=== PATIENT | female | born 1995 | race Caucasian/White ===

== ENCOUNTER 2017-01-17 07:35 | Emergency (ER) | payer OTHER ==
--- NOTE | 2017-01-17 10:15 | DIAGNOSTIC IMAGING REPORT ---
PROCEDURE: US ABDOMEN ULTRASOUND-LIMITED INDICATION: RUQ PAIN TECHNIQUE: Linton scale and color Doppler sonographic images of the abdomen were obtained without comparison. COMPARISON: None. FINDINGS: The liver is normal in size, contour, and echotexture. There is an 11 mm hemangioma in the right lower lobe. The gallbladder is normal without stones or sludge. The wall is normal thickness measuring 2.2 mm No pericholecystic fluid or Le sign. The extrahepatic common duct is normal measuring 2.5 mm The visualized pancreas is normal without ductal dilatation or peripancreatic fluid collection. The abdominal aorta is normal in its course and caliber. The retrohepatic inferior vena cava is patent. There is appropriate hepatopetal flow in the portal vein. The right kidney measures 10.2 cm in length. There is no perihepatic or perisplenic ascites. IMPRESSION: 1. Normal abdominal ultrasound.
--- NOTE | 2017-01-17 10:20 | ED ORDER SUMMARY ---
..... Patient: DULCE NIETO OrderSheet [facility] VisitID: [id number] [place] [address] 21y, F Registration Date/Time: 01/17/2017 ORDER SHEET Weight: 73.4 kg (stated) Allergies: No Known Drug Allergy GENERAL ORDERS: CBC w Diff Urgent (07:52 01/17/2017 Alex FOSTER) (Ack 7:57 LNations ER Tech1) (8:00 JBoardley R.N.) CMP Urgent (07:01/17/2017 Alex FOSTER) (Ack 7:57 LNations ER Tech1) (8:00 JBoardley R.N.) UA-Culture if indicated Urgent (07:01/17/2017 Alex FOSTER) (Ack 7:57 LNations ER Tech1) (8:25 JBoardley R.N.) Amylase Urgent (07:01/17/2017 Alex FOSTER) (Ack 7:57 LNations ER Tech1) (8:00 JBoardley R.N.) Lipase Urgent (07:01/17/2017 Alex FOSTER) (Ack 7:57 LNations ER Tech1) (8:00 JBoardley R.N.) Urine Urgent (07:52 01/17/2017 Alex FOSTER) (Ack 7:57 LNations ER Tech1) (8:25 JBoardley R.N.) US Abdomen Limited (Yes) Urgent (09:02 01/17/2017 Alex FOSTER) (Ack 9:23 LNations ER Tech1) (9:54 JBoardley R.N.) MEDICATION ORDERS: IV FLUIDS: IV NS : initial bolus 500 mL (1000 mL/hr), then 125 mL/hr for 4h (NOW); Urgent (07:51 01/17/2017 Alex FOSTER) (8:02 JBoardley R.N.) Zofran IV 4 mg (NOW) (07:52 01/17/2017 Alex FOSTER) (8:02 JBoardley R.N.) Zofran IV 4 mg (NOW) (09:25 01/17/2017 JBoardley R.N. per protocol) (9:25 Rosanna Duke) Demerol IV 25 mg (HIGH ALERT MEDICATION, NOW) (10:16 01/17/2017 Desmond Valdovinos) (10:26 Reagan Duke) ORDER SHEET NOTES: [Electronically signed by Joel Carreon Dr. (16:33 01/17/2017)] [Electronically signed by Domenico Bustamante R.N. (19:23 01/25/2017)] [Electronically locked/signed by Domenico Bustamante R.N. (19:23 01/25/2017)]
--- NOTE | 2017-01-17 10:20 | ED CLINICAL REPORT ---
Clinical Report - Physicians/Mid Levels [facility] [address] [place] [address] 01/17/2017 7:38 Patient: DULCE NIETO Time Seen: 07:51. Arrived- By private vehicle. Historian- patient. HISTORY OF PRESENT ILLNESS Chief Complaint: VOMITING. This started today at about 3 AM and is still present. It was abrupt in onset and has been waxing/waning. The patient has had nausea, vomiting. The vomiting has occurred several times and has been blood-tinged and moderate abdominal pain. The pain is described as located in the RUQ. She has had contact with a sick individual. (possibly - her boyfriend is currently hospitalized at another facility). The illness is described as moderate. REVIEW OF SYSTEMS No chills, fever, sweats, calf pain or chest pain. No cough, difficulty breathing, pedal edema, palpitations or black stools. No bloody stools, constipation, diarrhea, nausea or vomiting. No urinary problems. All systems otherwise negative, except as recorded above. PAST HISTORY Problems: Headache. Depression. Asthma. Panic Attack. Migraine Headache. Chronic Headache. Additional Surgeries: no known surgeries. Medications: TraZODone HCl Oral. Zoloft Oral. Allergies: No Known Drug Allergy. SOCIAL HISTORY Never smoker. No alcohol use or drug use. ADDITIONAL NOTES The nursing notes have been reviewed. PHYSICAL EXAM Vital Signs: 01/17/2017 07:41 BP: 98/61. HR: 102. RR: 18. O2 saturation: 100%. Temp: 99.2 F. Pain level now: 6/10. Have been reviewed. Appearance: Alert. Eyes: Pupils equal, round and reactive to light. ENT: Pharynx normal. Neck: Normal inspection. Neck supple. CVS: Normal heart rate and rhythm. Heart sounds normal. Respiratory: No respiratory distress. Breath sounds normal. Abdomen: Soft. Moderate tenderness in the right upper quadrant. LABS, X-RAYS, AND EKG Abdominal Sonogram: (Nl GB, no stones or evidence of cholecystitis.). Study included the gallbladder. Prior studies were not available for comparison. The study was interpreted by the radiologist and discussed with the radiologist. Interpretation time: 10:04. Laboratory Tests: UA-Culture if indicated: (YOUSIF: 01/17/2017 08:20) ( [facility] 01/17/2017 08:43) Final results Test Result Flag Units (Reference) URINE COLOR YELLOW URINE APPEARANCE SL CLOUDY URINE GLUCOSE NEGATIVE (NEGATIVE) URINE BILIRUBIN NEGATIVE (NEGATIVE) URINE KETONE NEGATIVE (NEGATIVE) URINE SPECIFIC GRAVITY 1.020 (1.010-1.030) URINE PH 6.5 (5.0-8.0) URINE PROTEIN NEGATIVE (NEGATIVE) URINE UROBILINOGEN 0.2 EU/dL (0.2-1.0) URINE NITRITE NEGATIVE (NEGATIVE) URINE BLOOD NEGATIVE (NEGATIVE) URINE LEUK ESTERASE NEGATIVE (NEGATIVE) URINE RBC NONE SEEN rbc/hpf (0-1) URINE WBC 1-3 wbc/hpf (0-1) URINE EPITHELIAL CELLS 3-5 EPI/hpf (0-5) URINE BACTERIA FEW (1+) (NONE SEEN) URINE COMMENT CULT NOT INDICATED URINE CULTURES ARE SET-UP BASED ON THE FOLLOWING CRITERIA:POSITIVE NITRITEPOSITIVE LEUKOCYTE ESTERASEGREATER THAN 10 WHITE BLOOD CELLSMODERATE (2+) OR GREATER BACTERIA Urine: (YOUSIF: 01/17/2017 08:20) ( [facility] 01/17/2017 08:38) Final results Test Result Flag Units (Reference) URINE NEGATIVE CBC w Diff: (YOUSIF: 01/17/2017 07:59) ( [facility] 01/17/2017 08:17) Final results Test Result Flag Units (Reference) WHITE BLOOD COUNT 7.5 K/uL (4.5-11.5) RED BLOOD COUNT 4.56 M/uL (4.00-5.20) HEMOGLOBIN 12.9 gm/dL (12.0-16.0) HEMATOCRIT 38.5 % (36.0-46.0) MEAN CELL VOLUME 84 fL (80-100) MEAN CORPUSCULAR HGB 28 pg (26-34) MEAN CORPUSCULAR HGB CONC 33 g/dL (31-37) RED CELL DISTRIBUTION WIDTH 14.2 % (11.6-14.8) PLATELET COUNT 190 K/uL (150-400) NEUTROPHIL % 85.1 H % (50-75) LYMPH % 2.8 L % (25-40) MONO % 4.7 % (3-14) EOSINOPHIL % 7.4 H % (0-4) BASOPHIL % 0 % (0-2) CMP: (YOUSIF: 01/17/2017 07:59) ( MsgRcvd 01/17/2017 08:47) Final results Test Result Flag Units (Reference) GLUCOSE 102 mg/dL (70-110) BUN 12 mg/dL (7-18) CREATININE 0.7 mg/dL (0.6-1.3) Estimated GFR >60 mL/min Estimated GFR- >60 mL/min Note: Persistent reduction over 3 months in eGFR<60 mL/min/1.73 m2 defines CKD. Patients with eGFR values>=60 mL/min/1.73 m2 may also have CKD if evidence ofpersistent proteinuria. Additional information may be foundat www.kidney.org. SODIUM 142 mmol/L (136-145) POTASSIUM 3.8 mmol/L (3.5-5.1) CHLORIDE 106 mmol/L (98-107) CARBON DIOXIDE 25 mmol/L (21-32) CALCIUM 8.4 L mg/dL (8.5-10.1) TOTAL PROTEIN 7.0 g/dL (6.4-8.2) ALBUMIN 3.6 g/dL (3.3-5.0) BILIRUBIN, TOTAL 0.6 mg/dL (0.0-1.0) ALKALINE PHOSPHATASE 52 U/L (46-116) AST (SGOT) 24 U/L (15-37) ALT (SGPT) 33 U/L (12-78) LIPASE 165 U/L (73-393) AMYLASE 80 U/L (25-115) . PROGRESS AND PROCEDURES Course of Care: 09:25 01/17/17. the case was discussed at change of shift with Dr. Carreon. Reviewed the patient's history and examination findings and the results of her labs. He will follow up on the results of her ultrasound and will arrange appropriate disposition for her. - SUKHI 10:16 01/17/17. Discussed results w/ pt. Confirmed H&P documented by Dr. Bond. Disposition: Discharged home in good and improved condition. Condition: good. CLINICAL IMPRESSION Biliary colic. No gallstones or cholecystitis. INSTRUCTIONS Avoid fatty and fried/greasy foods. Your Current Medications: CONTINUE TAKING THE FOLLOWING MEDICATIONS: TraZODone HCl Oral. Zoloft Oral. Prescription Medications: Zofran ODT 4 mg: take 1 orally every 6 hours as needed for nausea. Dispense ten (10). One refill. Substitution is permissible. Demerol 50 mg: take 1 - 2 tablets orally every 6 hours as needed for pain. Dispense fifteen (15). No refills. Substitution is permissible. Follow-up: Screening today revealed the patient's blood pressure to be in the normal range. Follow-up with: Kenton Talavera MD, General Surgeon, , [facility], [address] [place] [address] Follow up in about four days. Call for an appointment. (Electronically signed by Joel Carreon Dr. 01/17/2017 16:33)
--- NOTE | 2017-01-17 10:20 | ED NURSING NOTES ---
Clinical Report - Nurses [facility] [address] [place] [address] 01/17/2017 7:38 [id number] Triage time 07:42. Acuity: LEVEL 3. Chief Complaint: ABDOMINAL PAIN and NAUSEA. 07:42 01/17/17. 07:42 01/17/17. Alert. No acute distress. --07:44 Domenico Bustamante R.N. 07:41 01/17/17. BP: 98/61. HR: 102. RR: 18. O2 saturation: 100% on room air. Temp: 99.2 F (oral). Pain level now: 01/14. --07:44 Domenico Bustamante R.N. Weight: 73.4 kg stated. Height/Length: 68 inches Per Patient. BMI: 24.6. --07:41 Domenico Bustamante R.N. Medications Zoloft Oral. --07:43 Domenico Bustamante R.N. TraZODone HCl Oral. --07:43 Domenico Bustamante R.N. Allergies No Known Drug Allergy. --07:44 Domenico Bustamante R.N. History Arrived by EMS. Historian: EMS and patient. Unaccompanied. Primary physician (AMBERLY). 07:42 01/17/17. ( 0300). She has had nausea. Treatment ARTIST'S MODEL: None. PAST MEDICAL HX: Immunizations: up-to-date. Last normal menstrual period- 1 month ago. Denies current . SOCIAL HX: Never smoker. No alcohol use or drug use. No recent travel. No infectious disease exposure. No known contact with a sick individual. ABUSE ASSESSMENT: No report of abuse. FALL RISK ASSESSMENT: Fall risk assessment completed. No fall risk identified. NUTRITIONAL RISK ASSESSMENT: The nutritional risk assessment revealed no deficiencies. FUNCTIONAL ASSESSMENT: Functional assessment: no impairments noted. LEARNING NEEDS ASSESSMENT: The learning needs assessment revealed no barriers. SKIN INTEGRITY ASSESSMENT: Skin integrity risk assessment completed. No skin integrity risk identified. --07:44 Domenico Bustamante R.N. Treatment ARTIST'S MODEL: See EMS report. BP: 118 / 78. HR: 100 regular. RR: 16. Temp: 98.3 oral. O2 saturation: 96 % room air. ( Vomiting since 0300, with possible blood in vomit, pt is unsure). --08:08 Domenico Bustamante R.N. PROBLEMS: Immunizations. Headache. Depression. Asthma. Panic Attack. Migraine Headache. Chronic Headache. --07:44 Domenico Bustamante R.N. ADDITIONAL SURGERIES: no known surgeries. Assessment 07:42 01/17/17. --07:44 Domenico Bustamante R.N. Interventions 07:42 01/17/17. 07:42 01/17/17. ID and allergy band on patient. To treatment room. --07:44 Domenico Bustamante R.N. PHYSICAL ASSESSMENT 07:45 01/17/17. To room via stretcher. GENERAL / NEURO / PSYCH: Alert. Oriented X 4. Appears in no acute distress. RESPIRATORY: Respirations not labored. CVS: Capillary refill less than 2 seconds. GI / : Abdominal tenderness diffusely. SKIN: Skin is warm and dry. --07:45 Domenico Bustamante R.N. NURSING PROGRESS NOTES 07:45 01/17/17. The plan of care for this patient has been created. Patient gowned. Head of bed elevated. Reassurance given. Two patient identifiers checked. Call light placed in reach. Side rails up x 2. Bed placed in lowest position. Brakes of bed on. --07:45 Domenico Bustamante R.N. 07:45 01/17/17. Patient ready for evaluation- chart flagged and notification provided. --07:45 Domenico Bustamante R.N. <<WILIKEN ENTRY-- 07:52 01/17/2017 Site #1 started via IV in the left with an 20g angiocath, with aseptic technique and good blood return; one attempt. Blood drawn: rainbow set. Labeled in the presence of the patient and sent to the lab. Saline lock flushed with 10 mL saline. --08:02 Domenico Bustamante R.N. --END STRIKE>> Correction. --08:02 Domenico Bustamante R.N. 07:52 01/17/2017 Site #1 started via IV in the left antecubital space with an 20g angiocath, with aseptic technique and good blood return; one attempt. Blood drawn: rainbow set. Labeled in the presence of the patient and sent to the lab. Saline lock flushed with 10 mL saline. --08:02 Domenico Bustamante R.N. 08:02 01/17/2017 Started bag #1 1000 mL IV Fluids IV NS (Saline); at 1000 mL/hr over 1 hour(s) via site #1. Allergies verified and confirmed 5 rights. IV patency established. IV site checked: no pain, redness, or swelling. IV flushed thoroughly pre- and post-medication administration. Completed per protocol. --08:02 Domenico Bustamante R.N. 08:02 01/17/2017 Zofran (Ondansetron HCl) IVP 4 mg given over 2 minute(s) via site #1. Allergies verified and confirmed 5 rights. IV patency established. IV site checked: no pain, redness, or swelling. IV flushed thoroughly pre- and post-medication administration. IVP given by RN. --08:02 Domenico Bustamante R.N. 08:03 01/17/17. ( Pt is unable to void at this time). --08:03 Domenico Bustamante R.N. 08:25 01/17/17. BP: 98/55. HR: 94. RR: 18. O2 saturation: 100% on room air. Temp: 99 F (oral). Pain level now: 10. --08:26 Domenico Bustamante R.N. 08:26 01/17/17. --08:26 Domenico Bustamante R.N. 08:27 01/17/17. GI / : The patient reports abdominal pain that is described as sharp (stabbing pain, mid abd that radiates right to left). Denies nausea. --08:27 Domenico Bustamante R.N. 09:25 01/17/2017 Zofran (Ondansetron HCl) IVP 4 mg given over 2 minute(s) via site #1. Allergies verified and confirmed 5 rights. IV patency established. IV site checked: no pain, redness, or swelling. IV flushed thoroughly pre- and post-medication administration. IVP given by RN. --09:25 Domenico Bustamante R.N. 09:01/17/17. Patient informed about reason for wait and about plan of care. Patient waiting for diagnostic study to be done (). --09:31 Domenico Bustamante R.N. 10:01/17/2017 Demerol (Meperidine HCl) IVP 25 mg given over 30 second(s) via site #1. Allergies verified and confirmed 5 rights. IV patency established. IV site checked: no pain, redness, or swelling. IV flushed thoroughly pre- and post-medication administration. IVP given by RN. --10:26 Teresa Rasmussen R.N. Reassurance given. The patient is calm. GI / : The patient reports abdominal pain. Denies nausea, diarrhea or vomiting. Call light placed in reach. --10:30 Teresa Rasmussen R.N. 10:26 01/17/17. BP: 100/55. HR: 97. RR: 15. O2 saturation: 100%. Temp: 98.3 F (oral). Pain level now: 12/14. --10:30 Teresa Rasmussen R.N. DISPOSITION / DISCHARGE Condition at departure: improved and stable. The goals identified in the patient's plan of care were met. No learning barriers present. Discharge instructions provided and reviewed with the patient. Reviewed warnings. Reviewed medication(s). Reviewed referral to a fire truck driver. Reviewed diet. Activity restrictions (rest) reviewed. Patient verbalized understanding. Written instructions provided in Vietnamese. No treatment instructions. The patient was discharged by the physician. She was discharged home and accompanied by spouse. She left the Emergency Department ambulatory and via private vehicle. Driving (taxi). FALL RISK ASSESSMENT: Fall risk assessment completed. No fall risk identified. --10:36 Teresa Rasmussen R.N. 10:30 01/17/17. BP: 100/55 (regular adult cuff) taken on the left arm, via an automated monitor, while lying. HR: 97. RR: 16. O2 saturation: 100% on room air. Temp: 98.3 F. Pain level now: 11/14. --10:36 Teresa Rasmussen R.N. 10:36 01/17/2017 Site #1 removed upon discharge. Manual pressure, pressure dressing, bandaid and bandage applied. --10:36 Teresa Rasmussen R.N. Locked/Released at 01/25/2017 19:23 by Domenico Bustamante R.N.
--- NOTE | 2017-01-17 10:20 | ED NURSING NOTES ---
Clinical Report - Nurses [facility] [address] [place] [address] 01/17/2017 7:38 [id number] Triage time 07:42. Acuity: LEVEL 3. Chief Complaint: ABDOMINAL PAIN and NAUSEA. 07:42 01/17/17. 07:42 01/17/17. Alert. No acute distress. --07:44 Domenico Bustamante R.N. 07:41 01/17/17. BP: 98/61. HR: 102. RR: 18. O2 saturation: 100% on room air. Temp: 99.2 F (oral). Pain level now: 01/14. --07:44 Domenico Bustamante R.N. Weight: 73.4 kg stated. Height/Length: 68 inches Per Patient. BMI: 24.6. --07:41 Domenico Bustamante R.N. Medications Zoloft Oral. --07:43 Domenico Bustamante R.N. TraZODone HCl Oral. --07:43 Domenico Bustamante R.N. Allergies No Known Drug Allergy. --07:44 Domenico Bustamante R.N. History Arrived by EMS. Historian: EMS and patient. Unaccompanied. Primary physician (AMBERLY). 07:42 01/17/17. ( 0300). She has had nausea. Treatment RICE CLEANING MACHINE TENDER: None. PAST MEDICAL HX: Immunizations: up-to-date. Last normal menstrual period- 1 month ago. Denies current . SOCIAL HX: Never smoker. No alcohol use or drug use. No recent travel. No infectious disease exposure. No known contact with a sick individual. ABUSE ASSESSMENT: No report of abuse. FALL RISK ASSESSMENT: Fall risk assessment completed. No fall risk identified. NUTRITIONAL RISK ASSESSMENT: The nutritional risk assessment revealed no deficiencies. FUNCTIONAL ASSESSMENT: Functional assessment: no impairments noted. LEARNING NEEDS ASSESSMENT: The learning needs assessment revealed no barriers. SKIN INTEGRITY ASSESSMENT: Skin integrity risk assessment completed. No skin integrity risk identified. --07:44 Domenico Bustamante R.N. Treatment RICE CLEANING MACHINE TENDER: See EMS report. BP: 118 / 78. HR: 100 regular. RR: 16. Temp: 98.3 oral. O2 saturation: 96 % room air. ( Vomiting since 0300, with possible blood in vomit, pt is unsure). --08:08 Domenico Bustamante R.N. PROBLEMS: Immunizations. Headache. Depression. Asthma. Panic Attack. Migraine Headache. Chronic Headache. --07:44 Domenico Bustamante R.N. ADDITIONAL SURGERIES: no known surgeries. Assessment 07:42 01/17/17. --07:44 Domenico Bustamante R.N. Interventions 07:42 01/17/17. 07:42 01/17/17. ID and allergy band on patient. To treatment room. --07:44 Domenico Bustamante R.N. PHYSICAL ASSESSMENT 07:45 01/17/17. To room via stretcher. GENERAL / NEURO / PSYCH: Alert. Oriented X 4. Appears in no acute distress. RESPIRATORY: Respirations not labored. CVS: Capillary refill less than 2 seconds. GI / : Abdominal tenderness diffusely. SKIN: Skin is warm and dry. --07:45 Domenico Bustamante R.N. NURSING PROGRESS NOTES 07:45 01/17/17. The plan of care for this patient has been created. Patient gowned. Head of bed elevated. Reassurance given. Two patient identifiers checked. Call light placed in reach. Side rails up x 2. Bed placed in lowest position. Brakes of bed on. --07:45 Domenico Bustamante R.N. 07:45 01/17/17. Patient ready for evaluation- chart flagged and notification provided. --07:45 Domenico Bustamante R.N. <<WILIKEN ENTRY-- 07:52 01/17/2017 Site #1 started via IV in the left with an 20g angiocath, with aseptic technique and good blood return; one attempt. Blood drawn: rainbow set. Labeled in the presence of the patient and sent to the lab. Saline lock flushed with 10 mL saline. --08:02 Domenico Bustamante R.N. --END STRIKE>> Correction. --08:02 Domenico Bustamante R.N. 07:52 01/17/2017 Site #1 started via IV in the left antecubital space with an 20g angiocath, with aseptic technique and good blood return; one attempt. Blood drawn: rainbow set. Labeled in the presence of the patient and sent to the lab. Saline lock flushed with 10 mL saline. --08:02 Domenico Bustamante R.N. 08:02 01/17/2017 Started bag #1 1000 mL IV Fluids IV NS (Saline); at 1000 mL/hr over 1 hour(s) via site #1. Allergies verified and confirmed 5 rights. IV patency established. IV site checked: no pain, redness, or swelling. IV flushed thoroughly pre- and post-medication administration. Completed per protocol. --08:02 Domenico Bustamante R.N. 08:02 01/17/2017 Zofran (Ondansetron HCl) IVP 4 mg given over 2 minute(s) via site #1. Allergies verified and confirmed 5 rights. IV patency established. IV site checked: no pain, redness, or swelling. IV flushed thoroughly pre- and post-medication administration. IVP given by RN. --08:02 Domenico Bustamante R.N. 08:03 01/17/17. ( Pt is unable to void at this time). --08:03 Domenico Bustamante R.N. 08:25 01/17/17. BP: 98/55. HR: 94. RR: 18. O2 saturation: 100% on room air. Temp: 99 F (oral). Pain level now: 10. --08:26 Domenico Bustamante R.N. 08:26 01/17/17. --08:26 Domenico Bustamante R.N. 08:27 01/17/17. GI / : The patient reports abdominal pain that is described as sharp (stabbing pain, mid abd that radiates right to left). Denies nausea. --08:27 Domenico Bustamante R.N. 09:25 01/17/2017 Zofran (Ondansetron HCl) IVP 4 mg given over 2 minute(s) via site #1. Allergies verified and confirmed 5 rights. IV patency established. IV site checked: no pain, redness, or swelling. IV flushed thoroughly pre- and post-medication administration. IVP given by RN. --09:25 Domenico Bustamante R.N. 09:01/17/17. Patient informed about reason for wait and about plan of care. Patient waiting for diagnostic study to be done (). --09:31 Domenico Bustamante R.N. 10:01/17/2017 Demerol (Meperidine HCl) IVP 25 mg given over 30 second(s) via site #1. Allergies verified and confirmed 5 rights. IV patency established. IV site checked: no pain, redness, or swelling. IV flushed thoroughly pre- and post-medication administration. IVP given by RN. --10:26 Teresa Rasmussen R.N. Reassurance given. The patient is calm. GI / : The patient reports abdominal pain. Denies nausea, diarrhea or vomiting. Call light placed in reach. --10:30 Teresa Rasmussen R.N. 10:26 01/17/17. BP: 100/55. HR: 97. RR: 15. O2 saturation: 100%. Temp: 98.3 F (oral). Pain level now: 12/14. --10:30 Teresa Rasmussen R.N. DISPOSITION / DISCHARGE Condition at departure: improved and stable. The goals identified in the patient's plan of care were met. No learning barriers present. Discharge instructions provided and reviewed with the patient. Reviewed warnings. Reviewed medication(s). Reviewed referral to a waistline joiner lockstitch. Reviewed diet. Activity restrictions (rest) reviewed. Patient verbalized understanding. Written instructions provided in Serbian. No treatment instructions. The patient was discharged by the physician. She was discharged home and accompanied by spouse. She left the Emergency Department ambulatory and via private vehicle. Driving (taxi). FALL RISK ASSESSMENT: Fall risk assessment completed. No fall risk identified. --10:36 Teresa Rasmussen R.N. 10:30 01/17/17. BP: 100/55 (regular adult cuff) taken on the left arm, via an automated monitor, while lying. HR: 97. RR: 16. O2 saturation: 100% on room air. Temp: 98.3 F. Pain level now: 11/14. --10:36 Teresa Rasmussen R.N. 10:36 01/17/2017 Site #1 removed upon discharge. Manual pressure, pressure dressing, bandaid and bandage applied. --10:36 Teresa Rasmussen R.N. Locked/Released at 01/25/2017 19:23 by Domenico Bustamante R.N.
--- NOTE | 2017-01-17 10:20 | ED ORDER SUMMARY ---
..... Patient: DULCE NIETO OrderSheet [facility] VisitID: [id number] [place] [address] 21y, F Registration Date/Time: 01/17/2017 ORDER SHEET Weight: 73.4 kg (stated) Allergies: No Known Drug Allergy GENERAL ORDERS: CBC w Diff Urgent (07:52 01/17/2017 Alex FOSTER) (Ack 7:57 LNations ER Tech1) (8:00 JBoardley R.N.) CMP Urgent (07:01/17/2017 Alex FOSTER) (Ack 7:57 LNations ER Tech1) (8:00 JBoardley R.N.) UA-Culture if indicated Urgent (07:01/17/2017 Alex FOSTER) (Ack 7:57 LNations ER Tech1) (8:25 JBoardley R.N.) Amylase Urgent (07:01/17/2017 Alex FOSTER) (Ack 7:57 LNations ER Tech1) (8:00 JBoardley R.N.) Lipase Urgent (07:01/17/2017 Alex FOSTER) (Ack 7:57 LNations ER Tech1) (8:00 JBoardley R.N.) Urine Urgent (07:52 01/17/2017 Alex FOSTER) (Ack 7:57 LNations ER Tech1) (8:25 JBoardley R.N.) US Abdomen Limited (Yes) Urgent (09:02 01/17/2017 Alex FOSTER) (Ack 9:23 LNations ER Tech1) (9:54 JBoardley R.N.) MEDICATION ORDERS: IV FLUIDS: IV NS : initial bolus 500 mL (1000 mL/hr), then 125 mL/hr for 4h (NOW); Urgent (07:51 01/17/2017 Aelx FOSTER) (8:02 JBoardley R.N.) Zofran IV 4 mg (NOW) (07:52 01/17/2017 Alex FOSTER) (8:02 JBoardley R.N.) Zofran IV 4 mg (NOW) (09:25 01/17/2017 JBoardley R.N. per protocol) (9:25 Rosanna Duke) Demerol IV 25 mg (HIGH ALERT MEDICATION, NOW) (10:16 01/17/2017 Desmond Valdovinos) (10:26 Reagan Duke) ORDER SHEET NOTES: [Electronically signed by Joel Carreon Dr. (16:33 01/17/2017)] [Electronically signed by Domenico Bustamante R.N. (19:23 01/25/2017)] [Electronically locked/signed by Domenico Bustamante R.N. (19:23 01/25/2017)]
--- NOTE | 2017-01-17 10:20 | ED CLINICAL REPORT ---
Clinical Report - Physicians/Mid Levels [facility] [address] [place] [address] 01/17/2017 7:38 Patient: DULCE NIETO Time Seen: 07:51. Arrived- By private vehicle. Historian- patient. HISTORY OF PRESENT ILLNESS Chief Complaint: VOMITING. This started today at about 3 AM and is still present. It was abrupt in onset and has been waxing/waning. The patient has had nausea, vomiting. The vomiting has occurred several times and has been blood-tinged and moderate abdominal pain. The pain is described as located in the RUQ. She has had contact with a sick individual. (possibly - her boyfriend is currently hospitalized at another facility). The illness is described as moderate. REVIEW OF SYSTEMS No chills, fever, sweats, calf pain or chest pain. No cough, difficulty breathing, pedal edema, palpitations or black stools. No bloody stools, constipation, diarrhea, nausea or vomiting. No urinary problems. All systems otherwise negative, except as recorded above. PAST HISTORY Problems: Headache. Depression. Asthma. Panic Attack. Migraine Headache. Chronic Headache. Additional Surgeries: no known surgeries. Medications: TraZODone HCl Oral. Zoloft Oral. Allergies: No Known Drug Allergy. SOCIAL HISTORY Never smoker. No alcohol use or drug use. ADDITIONAL NOTES The nursing notes have been reviewed. PHYSICAL EXAM Vital Signs: 01/17/2017 07:41 BP: 98/61. HR: 102. RR: 18. O2 saturation: 100%. Temp: 99.2 F. Pain level now: 6/10. Have been reviewed. Appearance: Alert. Eyes: Pupils equal, round and reactive to light. ENT: Pharynx normal. Neck: Normal inspection. Neck supple. CVS: Normal heart rate and rhythm. Heart sounds normal. Respiratory: No respiratory distress. Breath sounds normal. Abdomen: Soft. Moderate tenderness in the right upper quadrant. LABS, X-RAYS, AND EKG Abdominal Sonogram: (Nl GB, no stones or evidence of cholecystitis.). Study included the gallbladder. Prior studies were not available for comparison. The study was interpreted by the radiologist and discussed with the radiologist. Interpretation time: 10:04. Laboratory Tests: UA-Culture if indicated: (YOUSIF: 01/17/2017 08:20) ( [facility] 01/17/2017 08:43) Final results Test Result Flag Units (Reference) URINE COLOR YELLOW URINE APPEARANCE SL CLOUDY URINE GLUCOSE NEGATIVE (NEGATIVE) URINE BILIRUBIN NEGATIVE (NEGATIVE) URINE KETONE NEGATIVE (NEGATIVE) URINE SPECIFIC GRAVITY 1.020 (1.010-1.030) URINE PH 6.5 (5.0-8.0) URINE PROTEIN NEGATIVE (NEGATIVE) URINE UROBILINOGEN 0.2 EU/dL (0.2-1.0) URINE NITRITE NEGATIVE (NEGATIVE) URINE BLOOD NEGATIVE (NEGATIVE) URINE LEUK ESTERASE NEGATIVE (NEGATIVE) URINE RBC NONE SEEN rbc/hpf (0-1) URINE WBC 1-3 wbc/hpf (0-1) URINE EPITHELIAL CELLS 3-5 EPI/hpf (0-5) URINE BACTERIA FEW (1+) (NONE SEEN) URINE COMMENT CULT NOT INDICATED URINE CULTURES ARE SET-UP BASED ON THE FOLLOWING CRITERIA:POSITIVE NITRITEPOSITIVE LEUKOCYTE ESTERASEGREATER THAN 10 WHITE BLOOD CELLSMODERATE (2+) OR GREATER BACTERIA Urine: (YOUSIF: 01/17/2017 08:20) ( [facility] 01/17/2017 08:38) Final results Test Result Flag Units (Reference) URINE NEGATIVE CBC w Diff: (YOUSIF: 01/17/2017 07:59) ( [facility] 01/17/2017 08:17) Final results Test Result Flag Units (Reference) WHITE BLOOD COUNT 7.5 K/uL (4.5-11.5) RED BLOOD COUNT 4.56 M/uL (4.00-5.20) HEMOGLOBIN 12.9 gm/dL (12.0-16.0) HEMATOCRIT 38.5 % (36.0-46.0) MEAN CELL VOLUME 84 fL (80-100) MEAN CORPUSCULAR HGB 28 pg (26-34) MEAN CORPUSCULAR HGB CONC 33 g/dL (31-37) RED CELL DISTRIBUTION WIDTH 14.2 % (11.6-14.8) PLATELET COUNT 190 K/uL (150-400) NEUTROPHIL % 85.1 H % (50-75) LYMPH % 2.8 L % (25-40) MONO % 4.7 % (3-14) EOSINOPHIL % 7.4 H % (0-4) BASOPHIL % 0 % (0-2) CMP: (YOUSIF: 01/17/2017 07:59) ( MsgRcvd 01/17/2017 08:47) Final results Test Result Flag Units (Reference) GLUCOSE 102 mg/dL (70-110) BUN 12 mg/dL (7-18) CREATININE 0.7 mg/dL (0.6-1.3) Estimated GFR >60 mL/min Estimated GFR- >60 mL/min Note: Persistent reduction over 3 months in eGFR<60 mL/min/1.73 m2 defines CKD. Patients with eGFR values>=60 mL/min/1.73 m2 may also have CKD if evidence ofpersistent proteinuria. Additional information may be foundat www.kidney.org. SODIUM 142 mmol/L (136-145) POTASSIUM 3.8 mmol/L (3.5-5.1) CHLORIDE 106 mmol/L (98-107) CARBON DIOXIDE 25 mmol/L (21-32) CALCIUM 8.4 L mg/dL (8.5-10.1) TOTAL PROTEIN 7.0 g/dL (6.4-8.2) ALBUMIN 3.6 g/dL (3.3-5.0) BILIRUBIN, TOTAL 0.6 mg/dL (0.0-1.0) ALKALINE PHOSPHATASE 52 U/L (46-116) AST (SGOT) 24 U/L (15-37) ALT (SGPT) 33 U/L (12-78) LIPASE 165 U/L (73-393) AMYLASE 80 U/L (25-115) . PROGRESS AND PROCEDURES Course of Care: 09:25 01/17/17. the case was discussed at change of shift with Dr. Carreon. Reviewed the patient's history and examination findings and the results of her labs. He will follow up on the results of her ultrasound and will arrange appropriate disposition for her. - SUKHI 10:16 01/17/17. Discussed results w/ pt. Confirmed H&P documented by Dr. Bond. Disposition: Discharged home in good and improved condition. Condition: good. CLINICAL IMPRESSION Biliary colic. No gallstones or cholecystitis. INSTRUCTIONS Avoid fatty and fried/greasy foods. Your Current Medications: CONTINUE TAKING THE FOLLOWING MEDICATIONS: TraZODone HCl Oral. Zoloft Oral. Prescription Medications: Zofran ODT 4 mg: take 1 orally every 6 hours as needed for nausea. Dispense ten (10). One refill. Substitution is permissible. Demerol 50 mg: take 1 - 2 tablets orally every 6 hours as needed for pain. Dispense fifteen (15). No refills. Substitution is permissible. Follow-up: Screening today revealed the patient's blood pressure to be in the normal range. Follow-up with: Kenton Talavera MD, General Surgeon, , [facility], [address] [place] [address] Follow up in about four days. Call for an appointment. (Electronically signed by Joel Carreon Dr. 01/17/2017 16:33)
--- NOTE | 2017-01-25 19:24 | ED DISCHARGE INSTRUCTIONS ---
Patient: DULCE NIETO General Instructions [facility] VisitID: [id number] [place] [address] 21y, F Registration Date/Time: 01/17/2017 Biliary colic. No gallstones or cholecystitis. INSTRUCTIONS Avoid fatty and fried/greasy foods. Your Current Medications: CONTINUE TAKING THE FOLLOWING MEDICATIONS: TraZODone HCl Oral. Zoloft Oral. Prescription Medications: Zofran ODT 4 mg: take 1 orally every 6 hours as needed for nausea. Dispense ten (10). One refill. Substitution is permissible. Demerol 50 mg: take 1 - 2 tablets orally every 6 hours as needed for pain. Dispense fifteen (15). No refills. Substitution is permissible. Follow-up: Screening today revealed the patient's blood pressure to be in the normal range. Follow-up with: Kenton Talavera MD, General Surgeon, , [facility], [address] [place] [address] Follow up in about four days. Call for an appointment. ADDITIONAL INFORMATION Crook Diet A bland diet is used for patients with an upset stomach. It consists of foods that are mild and easy to digest. It is better to eat small frequent meals rather than three large meals a day. BEVERAGES OK: Fruit juices, non-caffeinated teas and coffee, non-carbonated corado AVOID: Carbonated beverage, caffeinated tea and coffee, all alcoholic beverages BREAD OK: Refined white, wheat or rye bread, romulo or soda crackers, Hern[place] toast, plain rolls, bagels AVOID: Whole-grain bread CEREAL OK: Refined cereals: cooked or ready to eat AVOID: Whole grain cereals and granola, or those containing bran, seeds or nuts DESSERTS OK: Peanut butter and all others except those to "avoid" AVOID: Chocolate, cocoa, coconut, popcorn, nuts, seeds, jam, marmalade FRUITS OK: Canned, cooked, frozen or fresh fruits without seeds or tough skin AVOID: Olives, skin and seeds of fruit MEATS OK: All fresh or preserved meat, fish and fowl AVOID: Any that are prepared with those spices to "avoid" CHEESE & EGGS OK: Eggs, cottage cheese, cream cheese, other cheeses AVOID: All cheeses made with those spices to "avoid" POTATOES & PASTA OK: Potato, rice, macaroni, noodles, spaghetti AVOID: None SOUPS OK: All soups without heavy seasoning AVOID: Soups made with those spices to "avoid" VEGETABLES OK: Canned, cooked, fresh or frozen mildly flavored vegetables without seeds, skins or coarse fiber AVOID: Vegetables prepared with those spices to "avoid"; skin and seeds of vegetables and those with coarse fiber SPICES OK: Salt, lemon and [place] juice, vinegar, all extracts, jonathon, cinnamon, thyme, mace, allspice, paprika AVOID: Seneca powder, cloves, pepper, seed spices, garlic, gravy pickles, highly seasoned salad dressings Low Fat Diet A Low-fat diet will help you lose weight. It also can lower cholesterol and prevent symptoms of gallbladder disease. The average [place] diet contains up to 50% fat. This means that 50% of all calories come from fat (80-100 Grams of fat per day). Choosing normal portions of foods from the list below can lower your fat intake to 25-40 Grams of fat per day. This means 10-20% of calories come from fat. The remaining 80-90% of calories come from protein and carbohydrate. This is much healthier for you. Beverages Ok: Nonfat milk, coffee, tea, carbonated beverages Avoid: Whole and low-fat milk, evaporated milk and condensed milk; hot chocolate mixes, milk shakes, malts, eggnog Bread Ok: White, whole wheat or rye bread, romulo or soda crackers, Hernando toast, plain rolls, bagels Avoid: Rolls and breads containing whole milk or egg, waffles, pancakes, biscuits, corn bread; cheese crackers, other flavored crackers, pastries, doughnuts; wheat germ Cereal Ok: Oatmeal, whole wheat, bran, multi grain, rice Avoid: Granola or others containing oil or coconut or more than 2 Grams of fat per serving Desserts Ok: Gelatin, water ices, lakeisha food cake, puddings or sherbet made with non-fat milk, meringues and non-fat yogurt Avoid: Any other commercially prepared desserts or desserts containing fat, whole milk, cream, chocolate and coconut Fats Ok: You may have up to 3 teaspoons of fat daily. This can be in the form of butter, margarine, mayonnaise or vegetable oil Avoid: Cream, non-dairy creams, gravies and cream sauces Fruits Ok: All fruits prepared without fat Avoid: Avocado, coconut, olives Meats Ok: Limit meat to 6 oz daily (broiled, roasted, baked or boiled). Select only lean cuts, well trimmed of fat: beef, fish, drummond, pork and canned fish packed in water. Chicken and turkey with the skin removed Avoid: Fried meats, fish, poultry, fried eggs and fish canned in oils; fatty meats such as lange, corned beef, hot dogs, luncheon meats, or meats with gravies and sauces Cheese & Eggs Ok: Cheeses labeled "Low Fat"; 3 whole eggs per week, egg whites (Eggbeaters) as desired Avoid: All other cheeses Potatoes, Beans, Pasta Ok: Dried beans, split peas, lentils, potatoes, rice, macaroni, noodles, spaghetti prepared without added fat Avoid: Fried potatoes, potato chips, potatoes prepared with butter, cream cheese Soups Ok: Bouillon or broth soups without fat and with allowed vegetables Avoid: All other soups Vegetables Ok: Fresh, frozen, canned or dried vegetables all prepared without added fat Avoid: Fried vegetables and those prepared with butter, cream, sauces Miscellaneous Ok: Salt, sugar, jelly, hard candy, marshmallows, honey, syrup, spices and herbs, mustard, catsup, lemon, vinegar Avoid: Chocolate, nuts, coconut, cream candies, olives, sunflower or sesame and other seeds, all fried foods, and all cream sauces and gravies Ondansetron Oral disintegrating tablet What is this medicine? ONDANSETRON (on LEIGH se jermaine) is used to treat nausea and vomiting caused by chemotherapy. It is also used to prevent or treat nausea and vomiting after surgery. How should I use this medicine? These tablets are made to dissolve in the mouth. Do not try to push the tablet through the foil backing. With dry hands, peel away the foil backing and gently remove the tablet. Place the tablet in the mouth and allow it to dissolve, then swallow. While you may take these tablets with water, it is not necessary to do so. Talk to your alarm technician regarding the use of this medicine in children. Special care may be needed. What side effects may I notice from receiving this medicine? Side effects that you should report to your doctor or health outdoor emergency care technician as soon as possible: allergic reactions like skin rash, itching or hives, swelling of the face, lips, or tongue breathing problems dizziness fast or irregular heartbeat feeling faint or lightheaded, falls fever and chills swelling of the hands and feet tightness in the chest Side effects that usually do not require medical attention (report to your doctor or health outdoor emergency care technician if they continue or are bothersome): constipation or diarrhea headache What may interact with this medicine? Do not take this medicine with any of the following medications: -apomorphine -cisapride -dofetilide -dronedarone -pimozide -thioridazine -ziprasidone This medicine may also interact with the following medications: -carbamazepine -phenytoin -rifampicin -tramadol -other medicines that prolong the QT interval (cause an abnormal heart rhythm) What if I miss a dose? If you miss a dose, take it as soon as you can. If it is almost time for your next dose, take only that dose. Do not take double or extra doses. Where should I keep my medicine? Keep out of the reach of children. Store between 2 and 30 degrees C (36 and 86 degrees F). Throw away any unused medicine after the expiration date. What should I tell my health care provider before I take this medicine? They need to know if you have any of these conditions: heart disease history of irregular heartbeat liver disease low levels of magnesium or potassium in the blood an unusual or allergic reaction to ondansetron, granisetron, other medicines, foods, dyes, or preservatives or trying to get breast-feeding What should I watch for while using this medicine? Check with your doctor or health outdoor emergency care technician as soon as you can if you have any sign of an allergic reaction. Drug Abuse: Prescribed Narcotics& Sedatives Prolonged or overuse of drugs prescribed for pain or sedation may lead to addictionor dependence. Physical dependence leads to drug withdrawal symptoms if you stop taking the drug. With psychological dependence you feel a strong craving for the drug. You may be unable to stop using the drug even though you want to stop. These problems can occur even when the medication is taken at the prescribed dose. Drug addiction places you, your family, and your job at risk. Arrest, conviction and intermediate sentencing are possible. There is increased danger of accidental injuries to yourself or others while you are under the influence of the drug. from an unintentional overdose of the drug is one of the greatest risks you face. Get Care Admit you have a drug problem to yourself and your family and close friends. Tell your prescribing doctors about this problem so they can help you by adjusting the type and amount of medications that are prescribed in the future. It is best to receive all prescriptions for addictive medications from a single physician who can monitor what is being prescribed. Ask your doctor for a referral for professional help. This could be individual psychotherapy or counseling or a drug treatment program (outpatient or residential). Join a self-help group for drug abuse. Avoid friends who abuse drugs themselves or tempt you to continue abusing drugs. Do not combine pain medicines and sedatives together or with alcohol. Doing so can cause oversedation, coma, and stop your breathing. Follow Up with your doctor or as advised by our staff. Contact one of the resources below for help. National [place] on Alcoholism and Drug Dependencewww.ncadd.org Narcotics Anonymouswww.na.org National Alcohol and Substance Abuse Information Center (for referral to treatment programs) 610.236.3687 www.addictioncareoptions.com Get Prompt Medical Attention if any of the following occur: Excess drowsiness Slow breathing (under 8 breaths per minute) Agitation, anxiety, unable to sleep Unintended weight loss Seizure Chest pain or shortness of breath Fever of 100.4F (38C) or higher, or as directed by your healthcare provider Cough with colored sputum You have been given the following additional information: Diet, Crook (Adult) Diet, Low Fat Ondansetron Oral disintegrating tablet Drug Abuse: Prescribed Narcotics And Sedatives (Electronically signed by Joel Carreon Dr. 01/17/2017 16:33)
--- NOTE | 2017-01-25 19:24 | ED MED RECONCILIATION SUMMARY ---
Patient: DULCE NIETO Medication Reconciliation Report [facility] VisitID: [id number] [place] [address] 21y, F Registration Date/Time: 01/17/2017 Weight: 73.4 kg Height/Length: 68 in. BMI: 24.6 ALLERGIES: No Known Drug Allergy The patient's Home Medications are listed below: CONTINUE TAKING THE FOLLOWING MEDICATIONS: TraZODone HCl Oral Zoloft Oral The source(s) of the original Home Medication information: Not obtained. The following Medications were given to the patient in the Emergency Department: IV NS IV Fluids bolus 0, then 1000 mL/hr, administered: 01/17/2017 8:02:00 AM Zofran [IVP] IVP 4 mg, administered: 01/17/2017 8:02:00 AM Zofran [IVP] IVP 4 mg, administered: 01/17/2017 9:25:00 AM Demerol [IVP] IVP 25 mg, administered: 01/17/2017 10:26:00 AM The following Medications were prescribed to the patient: Zofran ODT 4 mg: take 1 orally every 6 hours as needed for nausea. Dispense ten (10). One refill. Substitution is permissible. -- Joel Carreon Dr. Demerol 50 mg: take 1 - 2 tablets orally every 6 hours as needed for pain. Dispense fifteen (15). No refills. Substitution is permissible. -- Joel Carreon Dr.
--- NOTE | 2017-01-25 19:24 | ED MED RECONCILIATION SUMMARY ---
Patient: UDLCE NIETO Medication Reconciliation Report [facility] VisitID: [id number] [place] [address] 21y, F Registration Date/Time: 01/17/2017 Weight: 73.4 kg Height/Length: 68 in. BMI: 24.6 ALLERGIES: No Known Drug Allergy The patient's Home Medications are listed below: CONTINUE TAKING THE FOLLOWING MEDICATIONS: TraZODone HCl Oral Zoloft Oral The source(s) of the original Home Medication information: Not obtained. The following Medications were given to the patient in the Emergency Department: IV NS IV Fluids bolus 0, then 1000 mL/hr, administered: 01/17/2017 8:02:00 AM Zofran [IVP] IVP 4 mg, administered: 01/17/2017 8:02:00 AM Zofran [IVP] IVP 4 mg, administered: 01/17/2017 9:25:00 AM Demerol [IVP] IVP 25 mg, administered: 01/17/2017 10:26:00 AM The following Medications were prescribed to the patient: Zofran ODT 4 mg: take 1 orally every 6 hours as needed for nausea. Dispense ten (10). One refill. Substitution is permissible. -- Joel Carreon Dr. Demerol 50 mg: take 1 - 2 tablets orally every 6 hours as needed for pain. Dispense fifteen (15). No refills. Substitution is permissible. -- Joel Carreon Dr.
--- NOTE | 2017-01-25 19:24 | ED MAR SUMMARY ---
..... Medication Administration Record [facility] [address] [place] [address] Patient: DULCE NIETO Visit ID: [id number] 21y, F Weight: 73.4 kg Height/Length: 68 in BMI: 24.6 ALLERGIES: No Known Drug Allergy Start 08:02 01/17/2017 Domenico Bustamante R.N. Medication Administered: IV NS (SALINE), Dose: IV Fluids over 1 hour(s), Rate: 1000 mL/hr, Dispensed: 1000 mL bag, Site: #1 left AC. Medication Ordered: IV NS : initial bolus 500 mL (1000 mL/hr), then 125 mL/hr for 4h (NOW); Urgent. Given 08:01/17/2017 Domenico Bustamante R.N. Medication Administered: ZOFRAN [IVP] (ONDANSETRON HCL), Dose: 4 mg IVP over 2 minute(s), Site: #1 left AC. Medication Ordered: Zofran IV 4 mg (NOW). Given 09:01/17/2017 Domenico Bustamante R.N. Medication Administered: ZOFRAN [IVP] (ONDANSETRON HCL), Dose: 4 mg IVP over 2 minute(s), Site: #1 left AC. Medication Ordered: Zofran IV 4 mg (NOW). Given 10:01/17/2017 Teresa Rasmussen R.N. Medication Administered: DEMEROL [IVP] (MEPERIDINE HCL), Dose: 25 mg IVP over 30 second(s), Site: #1 left AC. Medication Ordered: Demerol IV 25 mg (HIGH ALERT MEDICATION, NOW).
--- NOTE | 2017-01-25 19:24 | ED DISCHARGE INSTRUCTIONS ---
Patient: DULCE NIETO General Instructions [facility] VisitID: [id number] [place] [address] 21y, F Registration Date/Time: 01/17/2017 Biliary colic. No gallstones or cholecystitis. INSTRUCTIONS Avoid fatty and fried/greasy foods. Your Current Medications: CONTINUE TAKING THE FOLLOWING MEDICATIONS: TraZODone HCl Oral. Zoloft Oral. Prescription Medications: Zofran ODT 4 mg: take 1 orally every 6 hours as needed for nausea. Dispense ten (10). One refill. Substitution is permissible. Demerol 50 mg: take 1 - 2 tablets orally every 6 hours as needed for pain. Dispense fifteen (15). No refills. Substitution is permissible. Follow-up: Screening today revealed the patient's blood pressure to be in the normal range. Follow-up with: Kenton Talavera MD, General Surgeon, , [facility], [address] [place] [address] Follow up in about four days. Call for an appointment. ADDITIONAL INFORMATION Metcalfe Diet A bland diet is used for patients with an upset stomach. It consists of foods that are mild and easy to digest. It is better to eat small frequent meals rather than three large meals a day. BEVERAGES OK: Fruit juices, non-caffeinated teas and coffee, non-carbonated corado AVOID: Carbonated beverage, caffeinated tea and coffee, all alcoholic beverages BREAD OK: Refined white, wheat or rye bread, romulo or soda crackers, [place] toast, plain rolls, bagels AVOID: Whole-grain bread CEREAL OK: Refined cereals: cooked or ready to eat AVOID: Whole grain cereals and granola, or those containing bran, seeds or nuts DESSERTS OK: Peanut butter and all others except those to "avoid" AVOID: Chocolate, cocoa, coconut, popcorn, nuts, seeds, jam, marmalade FRUITS OK: Canned, cooked, frozen or fresh fruits without seeds or tough skin AVOID: Olives, skin and seeds of fruit MEATS OK: All fresh or preserved meat, fish and fowl AVOID: Any that are prepared with those spices to "avoid" CHEESE & EGGS OK: Eggs, cottage cheese, cream cheese, other cheeses AVOID: All cheeses made with those spices to "avoid" POTATOES & PASTA OK: Potato, rice, macaroni, noodles, spaghetti AVOID: None SOUPS OK: All soups without heavy seasoning AVOID: Soups made with those spices to "avoid" VEGETABLES OK: Canned, cooked, fresh or frozen mildly flavored vegetables without seeds, skins or coarse fiber AVOID: Vegetables prepared with those spices to "avoid"; skin and seeds of vegetables and those with coarse fiber SPICES OK: Salt, lemon and confederated coos juice, vinegar, all extracts, jonathon, cinnamon, thyme, mace, allspice, paprika AVOID: [place] powder, cloves, pepper, seed spices, garlic, gravy pickles, highly seasoned salad dressings Low Fat Diet A Low-fat diet will help you lose weight. It also can lower cholesterol and prevent symptoms of gallbladder disease. The average [place]cu[place] diet contains up to 50% fat. This means that 50% of all calories come from fat (80-100 Grams of fat per day). Choosing normal portions of foods from the list below can lower your fat intake to 25-40 Grams of fat per day. This means 10-20% of calories come from fat. The remaining 80-90% of calories come from protein and carbohydrate. This is much healthier for you. Beverages Ok: Nonfat milk, coffee, tea, carbonated beverages Avoid: Whole and low-fat milk, evaporated milk and condensed milk; hot chocolate mixes, milk shakes, malts, eggnog Bread Ok: White, whole wheat or rye bread, romulo or soda crackers, [place] toast, plain rolls, bagels Avoid: Rolls and breads containing whole milk or egg, waffles, pancakes, biscuits, corn bread; cheese crackers, other flavored crackers, pastries, doughnuts; wheat germ Cereal Ok: Oatmeal, whole wheat, bran, multi grain, rice Avoid: Granola or others containing oil or coconut or more than 2 Grams of fat per serving Desserts Ok: Gelatin, water ices, lakeisha food cake, puddings or sherbet made with non-fat milk, meringues and non-fat yogurt Avoid: Any other commercially prepared desserts or desserts containing fat, whole milk, cream, chocolate and coconut Fats Ok: You may have up to 3 teaspoons of fat daily. This can be in the form of butter, margarine, mayonnaise or vegetable oil Avoid: Cream, non-dairy creams, gravies and cream sauces Fruits Ok: All fruits prepared without fat Avoid: Avocado, coconut, olives Meats Ok: Limit meat to 6 oz daily (broiled, roasted, baked or boiled). Select only lean cuts, well trimmed of fat: beef, fish, drummond, pork and canned fish packed in water. Chicken and turkey with the skin removed Avoid: Fried meats, fish, poultry, fried eggs and fish canned in oils; fatty meats such as lange, corned beef, hot dogs, luncheon meats, or meats with gravies and sauces Cheese & Eggs Ok: Cheeses labeled "Low Fat"; 3 whole eggs per week, egg whites (Eggbeaters) as desired Avoid: All other cheeses Potatoes, Beans, Pasta Ok: Dried beans, split peas, lentils, potatoes, rice, macaroni, noodles, spaghetti prepared without added fat Avoid: Fried potatoes, potato chips, potatoes prepared with butter, cream cheese Soups Ok: Bouillon or broth soups without fat and with allowed vegetables Avoid: All other soups Vegetables Ok: Fresh, frozen, canned or dried vegetables all prepared without added fat Avoid: Fried vegetables and those prepared with butter, cream, sauces Miscellaneous Ok: Salt, sugar, jelly, hard candy, marshmallows, honey, syrup, spices and herbs, mustard, catsup, lemon, vinegar Avoid: Chocolate, nuts, coconut, cream candies, olives, sunflower or sesame and other seeds, all fried foods, and all cream sauces and gravies Ondansetron Oral disintegrating tablet What is this medicine? ONDANSETRON (on LEIGH se jermaine) is used to treat nausea and vomiting caused by chemotherapy. It is also used to prevent or treat nausea and vomiting after surgery. How should I use this medicine? These tablets are made to dissolve in the mouth. Do not try to push the tablet through the foil backing. With dry hands, peel away the foil backing and gently remove the tablet. Place the tablet in the mouth and allow it to dissolve, then swallow. While you may take these tablets with water, it is not necessary to do so. Talk to your insole rasper regarding the use of this medicine in children. Special care may be needed. What side effects may I notice from receiving this medicine? Side effects that you should report to your doctor or health pharmacist critical care as soon as possible: allergic reactions like skin rash, itching or hives, swelling of the face, lips, or tongue breathing problems dizziness fast or irregular heartbeat feeling faint or lightheaded, falls fever and chills swelling of the hands and feet tightness in the chest Side effects that usually do not require medical attention (report to your doctor or health pharmacist critical care if they continue or are bothersome): constipation or diarrhea headache What may interact with this medicine? Do not take this medicine with any of the following medications: -apomorphine -cisapride -dofetilide -dronedarone -pimozide -thioridazine -ziprasidone This medicine may also interact with the following medications: -carbamazepine -phenytoin -rifampicin -tramadol -other medicines that prolong the QT interval (cause an abnormal heart rhythm) What if I miss a dose? If you miss a dose, take it as soon as you can. If it is almost time for your next dose, take only that dose. Do not take double or extra doses. Where should I keep my medicine? Keep out of the reach of children. Store between 2 and 30 degrees C (36 and 86 degrees F). Throw away any unused medicine after the expiration date. What should I tell my health care provider before I take this medicine? They need to know if you have any of these conditions: heart disease history of irregular heartbeat liver disease low levels of magnesium or potassium in the blood an unusual or allergic reaction to ondansetron, granisetron, other medicines, foods, dyes, or preservatives or trying to get breast-feeding What should I watch for while using this medicine? Check with your doctor or health pharmacist critical care as soon as you can if you have any sign of an allergic reaction. Drug Abuse: Prescribed Narcotics& Sedatives Prolonged or overuse of drugs prescribed for pain or sedation may lead to addictionor dependence. Physical dependence leads to drug withdrawal symptoms if you stop taking the drug. With psychological dependence you feel a strong craving for the drug. You may be unable to stop using the drug even though you want to stop. These problems can occur even when the medication is taken at the prescribed dose. Drug addiction places you, your family, and your job at risk. Arrest, conviction and longterm sentencing are possible. There is increased danger of accidental injuries to yourself or others while you are under the influence of the drug. from an unintentional overdose of the drug is one of the greatest risks you face. Get Care Admit you have a drug problem to yourself and your family and close friends. Tell your prescribing doctors about this problem so they can help you by adjusting the type and amount of medications that are prescribed in the future. It is best to receive all prescriptions for addictive medications from a single physician who can monitor what is being prescribed. Ask your doctor for a referral for professional help. This could be individual psychotherapy or counseling or a drug treatment program (outpatient or residential). Join a self-help group for drug abuse. Avoid friends who abuse drugs themselves or tempt you to continue abusing drugs. Do not combine pain medicines and sedatives together or with alcohol. Doing so can cause oversedation, coma, and stop your breathing. Follow Up with your doctor or as advised by our staff. Contact one of the resources below for help. National Sycuan on Alcoholism and Drug Dependencewww.ncadd.org Narcotics Anonymouswww.na.org National Alcohol and Substance Abuse Information Center (for referral to treatment programs) 452.688.5339 www.addictioncareoptions.com Get Prompt Medical Attention if any of the following occur: Excess drowsiness Slow breathing (under 8 breaths per minute) Agitation, anxiety, unable to sleep Unintended weight loss Seizure Chest pain or shortness of breath Fever of 100.4F (38C) or higher, or as directed by your healthcare provider Cough with colored sputum You have been given the following additional information: Diet, Metcalfe (Adult) Diet, Low Fat Ondansetron Oral disintegrating tablet Drug Abuse: Prescribed Narcotics And Sedatives (Electronically signed by Joel Carreon Dr. 01/17/2017 16:33)
--- NOTE | 2017-01-25 19:24 | ED MAR SUMMARY ---
..... Medication Administration Record [facility] [address] [place] [address] Patient: DULCE NIETO Visit ID: [id number] 21y, F Weight: 73.4 kg Height/Length: 68 in BMI: 24.6 ALLERGIES: No Known Drug Allergy Start 08:02 01/17/2017 Domenico Bustamante R.N. Medication Administered: IV NS (SALINE), Dose: IV Fluids over 1 hour(s), Rate: 1000 mL/hr, Dispensed: 1000 mL bag, Site: #1 left AC. Medication Ordered: IV NS : initial bolus 500 mL (1000 mL/hr), then 125 mL/hr for 4h (NOW); Urgent. Given 08:01/17/2017 Domenico Bustamante R.N. Medication Administered: ZOFRAN [IVP] (ONDANSETRON HCL), Dose: 4 mg IVP over 2 minute(s), Site: #1 left AC. Medication Ordered: Zofran IV 4 mg (NOW). Given 09:01/17/2017 Domenico Bustamante R.N. Medication Administered: ZOFRAN [IVP] (ONDANSETRON HCL), Dose: 4 mg IVP over 2 minute(s), Site: #1 left AC. Medication Ordered: Zofran IV 4 mg (NOW). Given 10:01/17/2017 Teresa Rasmussen R.N. Medication Administered: DEMEROL [IVP] (MEPERIDINE HCL), Dose: 25 mg IVP over 30 second(s), Site: #1 left AC. Medication Ordered: Demerol IV 25 mg (HIGH ALERT MEDICATION, NOW).
== END 2017-01-17 10:45 | disposition home or self-care (01) ==
LOC: ED SRH 07:35
DX: K80.50 Calculus of bile duct without cholangitis or cholecystitis without obstruction (principal)
CPT/HCPCS: 90004; 90100; 92235; 92530; 93070; 95059

== ENCOUNTER 2017-01-27 09:53 | Outpatient (CLI) | payer OTHER ==
--- NOTE | 2017-01-27 13:36 | DIAGNOSTIC IMAGING REPORT ---
PROCEDURE: NM HEPATOBILIARY IMAGING INDICATION: GALLBLADDER ATTACK TECHNIQUE: 8 mCi of technetium-99m Choletec was injected intravenously and images were acquired over 45 minutes. Gallbladder was not visualized and the patient was given 3 mg of morphine sulfate and an additional 4 mCi of technetium -99m Choletec. Subsequently the patient was given a fatty meal and gallbladder ejection fraction was calculated. COMPARISON: Abdominal ultrasound 01/17/2017. FINDINGS: Homogeneous radiotracer uptake throughout the liver. Small bowel activity is seen at 11 minutes but no visualization of the gallbladder at 45 minutes.. Following administration of morphine and additional dose of Choletec, gallbladder visualized within 3 minutes. The gallbladder ejection fraction was zero at 15 minutes, 30 minutes and 45 minutes. IMPRESSION: 1. Patent cystic and common bile ducts 2. Gallbladder dyskinesia
== END 2017-01-27 23:00 | disposition home or self-care (01) ==
LOC: NM SRH 09:53
DX: K82.8 Other specified diseases of gallbladder (principal)